=== PATIENT | female | born 1955 | race Caucasian/White ===

== ENCOUNTER 2020-12-22 20:22 | Emergency (ER) | payer MEDICARE, BC ==
[2020-12-22] MEDS ORDERED: HYDROmorphone 0.5 MG/0.5 ML Syringe IM ONE (21:29)
--- NOTE | 2020-12-22 21:36 | EDM.PDOC ---
ED HPI GENERAL MEDICAL PROBLEM - General Chief Complaint: Head Injury Stated Complaint: FELL & HIT HEAD AND RIGHT ARM/LEG Time Seen by Provider: 12/22/20 21:23 Source of Information: Reports: Patient, RN Notes Reviewed History Limitations: Reports: No Limitations - History of Present Illness INITIAL COMMENTS - FREE TEXT/NARRATIVE: Patient is a 65-year-old female who presents to the ED for evaluation of a fall. She was at [place] this evening, when she got her foot caught on a wheel of a walker, and then fell into a door jamb, and she ended up falling onto her right elbow, and then also fell backwards onto the floor, striking the back of her head on the floor. She did not have a loss of consciousness, she does have a pretty large hematoma to the back of her head but has not had any major headache, blurred vision double vision or any other neurological deficits. Patient is on Coumadin 7.5 mg and alternates with 5 mg per her doctor's instructions. Patient notes that she feels slightly dizzy, she is complaining of some neck pain as well. She did not take any sort of pain medications prior to coming to the ER. Patient's primary care provider is in [place], the patient resides in [place] as well. No sick symptoms Posterior Head Pain Score (Numeric/FACES): 5 Neck Pain Score (Numeric/FACES): 7 - Related Data Allergies Allergy/AdvReac Type Severity Reaction Status Date / Time amoxicillin Allergy Severe Shortness Verified 12/22/20 21:12 of Breath cefixime Allergy Severe Shortness Verified 12/22/20 21:12 of Breath Sulfa (Sulfonamide Allergy Severe Other Verified 12/22/20 21:12 Antibiotics) trazodone Allergy Severe Agitation Verified 12/22/20 21:12 venlafaxine [From Effexor] Allergy Severe Other Verified 12/22/20 21:12 EES Allergy Severe Anaphylactic Uncoded 12/22/20 21:12 Shock Home Meds: Home Meds Acetaminophen/Butalbital/Caff [Fioricet 325-50-40 MG] 1 tab PO ASDIRECTED PRN 12/22/20 [History] Albuterol Sulfate [Albuterol Sulfate HFA] 2 puff INH ASDIRECTED 12/22/20 [History] Cholecalciferol (Vitamin D3) [Vitamin D3] 2,000 unit PO DAILY 12/22/20 [History] Cyanocobalamin (Vitamin B-12) [Vitamin B-12] 500 mg PO DAILY 12/22/20 [History] Cyclobenzaprine [Flexeril] 10 mg PO TID PRN 12/22/20 [History] FLUoxetine [PROzac] 20 mg PO DAILY 12/22/20 [History] Fexofenadine [Lily] 180 mg PO DAILY 12/22/20 [History] Ipratropium [Atrovent 0.03% Nasal [place]] 1 spray INH DAILY 12/22/20 [History] Levothyroxine [Synthroid] 100 mcg PO DAILY 12/22/20 [History] Melatonin 5 mg PO BEDTIME 12/22/20 [History] Lincoln-3 Fatty Acids [Lincoln-3] 1,000 mg PO DAILY 12/22/20 [History] Propafenone [Rythmol] 150 mg PO TID 12/22/20 [History] SUMAtriptan succinate [Imitrex] 100 mg PO ASDIRECTED PRN 12/22/20 [History] Warfarin [Coumadin] 5 mg PO SUTUTHSA 12/22/20 [History] Warfarin [Coumadin] 7.5 mg PO MOWEFR 12/22/20 [History] amLODIPine [Norvasc] 2.5 mg PO DAILY 12/22/20 [History] buPROPion [Wellbutrin SR] 300 mg PO DAILY 12/22/20 [History] carvediloL [Coreg] 3.125 mg PO BID 12/22/20 [History] traMADol [Ultram] 50 mg PO Q6H PRN 12/22/20 [History] valACYclovir [Valtrex] 1,000 mg PO ASDIRECTED PRN 12/22/20 [History] Past Medical History Cardiovascular History: Reports: Afib Respiratory History: Reports: Bronchitis, Recurrent Gastrointestinal History: Reports: Chronic Constipation Genitourinary History: Reports: UTI, Recurrent Musculoskeletal History: Reports: Arthritis, Back Pain, Chronic Neurological History: Reports: Migraines, Vertigo Psychiatric History: Reports: Anxiety, Depression Endocrine/Metabolic History: Reports: Hypothyroidism - Infectious Disease History Infectious Disease History: Reports: Chicken Pox, Measles, Mumps, Shingles - Past Surgical History Female Surgical History: Reports: D&C, Hysterectomy Social & Family History - Tobacco Use Tobacco Use Status *Q: Former Tobacco User Used Tobacco, but Quit: Yes Month/Year Tobacco Last Used: 38 - Caffeine Use Caffeine Use: Reports: Coffee, Soda, Tea - Recreational Drug Use Recreational Drug Use: No ED ROS GENERAL - Review of Systems Review Of Systems: Comprehensive ROS is negative, except as noted in HPI. ED EXAM, HEAD INJURY - Physical Exam Exam: See Below Exam Limited By: No Limitations General Appearance: Alert, WD/WN, No Apparent Distress Head: Normocephalic, Scalp Hematoma (to the back of her head) Nexus Criteria: Posterior, Midline Cervical Tenderness. No: Evidence of Intoxication, Altered Level of Consciousness, Focal Neurological Deficit, Painful Distraction Injuries Eyes: Bilateral Eye: EOMI, Normal Inspection, PERRL Ears: Normal External Exam, Normal Canal, Hearing Grossly Normal, Normal TMs Nose: Normal Inspection Throat/Mouth: Normal Inspection Neck: Other (C-collar was placed by triage nurse, the patient does have some midline tenderness and limited ROM d/t pain) Respiratory: No Respiratory Distress, Lungs Clear, Normal Breath Sounds, No Accessory Muscle Use, Chest Non-Tender Cardiovascular: Normal Peripheral Pulses, Regular Rate, Rhythm, No Edema Extremities: Normal Capillary Refill, Other (There is a rather large hematoma to the medial aspect of the patient's right upper arm.) Neurologic: No Motor/Sensory Deficits, Alert, Normal Mood/Affect, Oriented x 3 Skin: Normal Color, Warm/Dry - Mohler Coma Score Best Eye Response (Mohler): (4) Open Spontaneously Best Verbal Response (Angelito): (5) Oriented Best Motor Response (Mohler): (6) Obeys Commands Mohler Total: 15 Course - Vital Signs Last Recorded V/S: Last Vital Signs Temp 97.9 F 12/22/20 20:53 Pulse 62 12/22/20 20:53 Resp BP 149/99 H 12/22/20 20:53 Pulse Ox 95 12/22/20 20:53 - Orders/Labs/Meds Orders: Active Orders 24 hr Category Date Time Status Cervical Spine wo Cont [CT] Stat Exams 12/22/20 21:29 Ordered Head wo Cont [CT] Stat Exams 12/22/20 21:24 Ordered Meds: Medications Discontinued Medications Generic Name Dose Route Start Last Admin Trade Name Freq PRN Reason Stop Dose Admin Hydromorphone HCl 0.5 mg 12/22/20 21:29 12/22/20 22:04 Dilaudid IM 12/22/20 21:30 0.5 mg ONETIME ONE Administration - Re-Assessments/Exams Free Text/Narrative Re-Assessment/Exam: 12/22/20 21:36 Patient presents to the ED for her head injury, due to the patient being on blood thinners, I will order head CT, she was having some significant pain in her neck so we will go ahead and get a cervical spine CT as well. Patient will be given 0.5 mg IM Dilaudid for pain management. 12/22/20 22:34 CT of the head and neck are without acute injury. Patient will discharge home with conservative recommendations. Departure - Departure Time of Disposition: 22:34 Disposition: Home, Self-Care 01 Condition: Good Clinical Impression: Fall Qualifiers: Encounter type: initial encounter Qualified Code(s): W19.XXXA - Unspecified fall, initial encounter Head injury due to trauma Qualifiers: Encounter type: initial encounter Qualified Code(s): S09.90XA - Unspecified injury of head, initial encounter - Discharge Information *PRESCRIPTION DRUG MONITORING PROGRAM REVIEWED*: No *COPY OF PRESCRIPTION DRUG MONITORING REPORT IN PATIENT SONIA: No Instructions: Head Injury, Adult, [id number], Facial or Scalp Contusion, [id number] Referrals: Elisabeth Jerez MD [Primary Care Provider] - Forms: ED Department Discharge Additional Instructions: You were seen in the ER today for your head injury and neck injury. Your head CT and neck CT were without acute findings, there is no sign of a bleed, or any broken bones. You will likely feel sore/battered/bruised for the next few days, you had a rather large bruise on your right arm, and also a bruise on your scalp. You may take 600 mg ibuprofen or 500 mg Tylenol every 6 hours as needed for further pain or discomfort. Do not exceed 3200 mg ibuprofen or 4000 mg Tylenol in a 24-hour time span. Please return to the ER at any time if symptoms change or worsen. Sepsis Event Note (ED) - Evaluation Sepsis Screening Result: No Definite Risk - Focused Exam Vital Signs: Vital Signs Temp Pulse BP Pulse Ox 12/22/20 20:53 97.9 F 62 149/99 H 95 - My Orders Last 24 Hours: My Active Orders 12/22/20 21:24 Head wo Cont [CT] Stat 12/22/20 21:29 Cervical Spine wo Cont [CT] Stat - Assessment/Plan Last 24 Hours: My Active Orders 12/22/20 21:24 Head wo Cont [CT] Stat 12/22/20 21:29 Cervical Spine wo Cont [CT] Stat
--- NOTE | 2020-12-23 10:22 | CT ---
CT cervical spine Technique: Multiple axial sections were obtained from above C1 inferiorly to the bottom of T2. Reconstructed coronal and sagittal images were obtained. Findings: Severe disc space narrowing is noted at C3-4 with anterior osteophytes. Anterior plate and screws are noted at C4 and C5. Intervertebral disc calcification is seen. Mild posterior osteophytes are seen. Disc fusion is noted at C5-6. Partial disc fusion is seen at C6-7. Severe disc space narrowing is noted at C7-T1 and T1-2. Anterior osteophytes are seen mostly at T1-2. Slightly abnormal cervical curvature is seen compatible with the previous surgery and degenerative change. Mild left-sided neural foraminal stenosis is noted at C3-4 and moderate right-sided neural foraminal stenosis is seen. Mild right-sided neural foraminal stenosis and minimal left-sided neural foraminal stenosis noted at C4-5. Mild bilateral neural foraminal stenosis noted at C5-6. There is narrowing being seen within the bilateral T2-3 neural foramina. No definite central canal stenosis is seen. No acute fracture is appreciated. Impression: 1. Degenerative change and previous surgery as noted above with areas of neural foraminal narrowing. 2. No acute fracture is appreciated. Diagnostic code #3 I agree with preliminary report from [facility], finalized on 12/22/20, 11:14 PM SPECIFICATION WRITER
--- NOTE | 2020-12-23 10:22 | CT ---
Head CT Technique: Multiple axial sections through the brain were obtained. Intravenous contrast was not utilized. Comparison: No prior intracranial imaging is available. Findings: Ventricles along with basal cisterns and sulci over the convexities are within normal limits for the patient's age. No abnormal parenchymal densities are seen. No evidence of intracranial hemorrhage. No midline shift or mass-effect is seen. Visualized mastoid sinuses and paranasal sinuses show nothing acute. No acute calvarial finding is appreciated. Mild atherosclerotic calcification is seen within the carotid siphon. Small density is noted within the posterior right scalp possibly due to minimal scalp hematoma. Impression: 1. Minimal senescent change as noted above. 2. Questionable small scalp hematoma. 3. Nothing acute is seen on noncontrast head CT study. Diagnostic code #2 I agree with preliminary report from [facility], finalized on 12/22/20, 11:13 PM REVIEW CONSULTANT
== END 2020-12-22 23:00 | disposition home or self-care (01) ==
LOC: JD.ED 20:22
DX: S00.03XA Contusion of scalp, initial encounter (principal); S40.021A Contusion of right upper arm, initial encounter; I48.91 Unspecified atrial fibrillation; E03.9 Hypothyroidism, unspecified; Z88.0 Allergy status to penicillin; Z88.1 Allergy status to other antibiotic agents; Z88.2 Allergy status to sulfonamides; Z88.5 Allergy status to narcotic agent; Z88.8 Allergy status to other drugs, medicaments and biological substances; Z79.01 Long term (current) use of anticoagulants; Z79.899 Other long term (current) drug therapy; Z87.891 Personal history of nicotine dependence; W23.0XXA Caught, crushed, jammed, or pinched between moving objects, initial encounter
CPT/HCPCS: 70450; 72125; 96372; 99284; J1170